=== PATIENT | male | born 1960 | race African-American/Black ===

== ENCOUNTER 2020-01-20 23:13 | Emergency (ER) | payer SELFPAY ==
[~2020-01-20] VITALS: Ht 170.2 cm; Wt 64.4 kg
--- NOTE | 2020-01-20 23:15 | NUR ---
Patient brought in by [facility] for overdose, [place] in his possession, patient appears altered and lethargic
--- NOTE | 2020-01-20 23:25 | NUR ---
at bedside for MSE
--- NOTE | 2020-01-21 00:13 | NUR ---
IV placed in left forearm 20 g, Normal saline running, no distress noted
[2020-01-21 00:15] LABS: BASOPHILS % (AUTO) 0.9 % (0.0-2.0); EOSINOPHILS # (AUTO) 0.1 K/uL (0.0-0.7); EOSINOPHILS % (AUTO) 2.3 % (0.0-7.0); HEMATOCRIT 33.6 % (36.7-47.1); HEMOGLOBIN 11.4 g/dL (12.5-16.3); LYMPHOCYTES # (AUTO) 1.7 K/uL (20.0-40.0); LYMPHOCYTES % (AUTO) 32.1 % (20.5-51.5); MEAN CORPUSCULAR HEMOGLOBIN 32.1 uug (23.8-33.4); MEAN CORPUSCULAR HGB CONC 34 g/dL (32.5-36.3); MEAN CORPUSCULAR VOLUME 94.7 fL (73.0-96.2); MONOCYTES # (AUTO) 0.5 K/uL (2.0-10.0); MONOCYTES % (AUTO) 9.5 % (0.0-11.0); NEUTROPHILS # (AUTO) 2.9 K/uL (1.8-8.9); NEUTROPHILS % (AUTO) 55.2 % (38.5-71.5); PLATELET COUNT (AUTO) 110 K/uL (152-348); RED BLOOD CELL COUNT(AUTO) 3.55 MIL/uL (4.06-5.63); WHITE BLOOD COUNT (AUTO) 5.2 K/uL (3.6-10.2)
[2020-01-21] MEDS ORDERED: IV NORMAL SALINE 1000 ML BAG IV ONE (00:15)
--- NOTE | 2020-01-21 00:20 | NUR ---
Patient left for CT at this time
[2020-01-21 00:32] LABS: ALANINE AMINOTRANSFERASE 21 U/L (16-63); ALKALINE PHOSPHATASE 120 U/L (50-136); ASPARTATE AMINOTRANSFERASE 17 U/L (15-37); BILIRUBIN,DIRECT 0.1 mg/dL (0.0-0.2); BILIRUBIN,TOTAL 0.3 mg/dL (0.2-1.0); CARBON DIOXIDE 25 mmol/L (21-32); CHLORIDE 108 mmol/L (98-107); GLUCOSE 97 mg/dL (74-106); POTASSIUM 3.7 mmol/L (3.5-5.1); TOTAL PROTEIN, SERUM 7.8 g/dL (6.4-8.2); UREA NITROGEN, BLOOD 13 mg/dL (7-18)
[2020-01-21 00:38] LABS: ACETAMINOPHEN < 2.0 ug/mL (10-30)
[2020-01-21 00:43] LABS: ETHANOL 239 MG/DL (0-0)
--- NOTE | 2020-01-21 01:07 | NUR ---
Patient noted resting in bed, no distress noted
--- NOTE | 2020-01-21 01:55 | NUR ---
no changes at this time, vitals stable, no signs of distress, noted resting with eyes closed
--- NOTE | 2020-01-21 03:10 | NUR ---
patient continues to rest with eyes closed, no distress noted, no complaints of pain, vitals WNL
--- NOTE | 2020-01-21 04:00 | NUR ---
patient resting in bed, no complaints of pain, no signs of distress
--- NOTE | 2020-01-21 05:48 | NUR ---
patient noted resting in bed, vitals signs stable, no changes noted
--- NOTE | 2020-01-21 06:10 | NUR ---
Patient became combative stating he was missing a cellphone and 100 dollars, patient did not have any money or cell phone upon admission, patient unable to be redirected and then stated he wished to go AMA, once IV was removed patient begain to rumage through belongings in room, demi rossi called, patient began to spit and kick at the staff
[2020-01-21] MEDS ORDERED: LORAZEPAM 2 MG/1 ML VIAL IM ONE (06:15)
[2020-01-21] MEDS ORDERED: LORAZEPAM 2 MG/1 ML VIAL ONE (06:16)
--- NOTE | 2020-01-21 06:20 | NUR ---
[address] per MD orders
[2020-01-21] MEDS ORDERED: HALOPERIDOL LACTATE 5 MG/1 ML VIAL ONE (06:30)
[2020-01-21] MEDS ORDERED: HALOPERIDOL LACTATE 5 MG/1 ML VIAL IM ONE (06:30)
--- NOTE | 2020-01-21 06:35 | NUR ---
4 point restraints continue to be in use, patient noted stating, "F*CK YALL" and spitting on the floor, all needs met at this time
--- NOTE | 2020-01-21 07:14 | NUR ---
IV removed. Catheter intact and site benign. Pressure and 4x4 gauze applied to site. No bleeding noted. Patient given written and verbal discharge instructions. Patient verbalizes understanding of instructions. Patient is ambulatory with steady gait. Refuses offer of [facility] placement. Patient given list of available shelters in surrounding area. All belongings with patient. NAD noted
[2020-01-21 07:37] VITALS: BP 133/71
== END 2020-01-21 07:14 | disposition home or self-care (01) ==
LOC: EDBD 23:15 → ER 23:15
DX: F10.121 Alcohol abuse with intoxication delirium (principal); Y90.7 Blood alcohol level of 200-239 mg/100 ml; J32.0 Chronic maxillary sinusitis; D64.9 Anemia, unspecified; D69.6 Thrombocytopenia, unspecified; Z59.0 Homelessness; R45.1 Restlessness and agitation; J45.909 Unspecified asthma, uncomplicated; R94.31 Abnormal electrocardiogram [ECG] [EKG]
CPT/HCPCS: 36415; 70450; 71045; 72125; 80048; 80076; 80307; 80329; 84484; 85025; 93005; 96360; 96372 ×2; 99285; G0480; J1630; J2060; 70030-TC; A4663; J7030